=== PATIENT | male | born 1995 | race Caucasian/White ===

== ENCOUNTER → 2025-01-21 07:20 | Outpatient (CLI) | payer OTHER, SELFPAY ==
--- NOTE | 2025-01-21 07:23 | DI.US.S_ITS ---
PROCEDURE: US SCROTUM INDICATIONS: r/o epididymitis TECHNIQUE: Real-time scanning was performed of the scrotum and testicles, with image documentation. Color and pulse Doppler interrogation was performed of both testicles. COMPARISON: None. FINDINGS: Right: Testicle is normal in size at 4.3 x 2.2 x 3.0 cm, and homogenous in echotexture. Epididymis is normal in overall size with mildly heterogeneous epididymal echotexture. No hydrocele or varicoceles. Overlying scrotal skin is normal in thickness. Left: Testicle is normal in size at 4.2 x 2.1 x 2.7 cm, and homogeneous in echotexture. Epididymis is normal in overall size with mildly heterogeneous epididymal echotexture.. Small left hydrocele. No varicoceles. Overlying scrotal skin is normal in thickness. Doppler: Color and pulse Doppler demonstrate normal and symmetric arterial flow in both testicles. IMPRESSION: 1. Small left hydrocele. No varicoceles. 2. Mild heterogeneous echotexture in bilateral epididymis. No abnormally increased vascularity to suggest epididymitis. No discrete epididymal mass. 3. Normal appearing bilateral testes. Dictated by: Connor Card M.D. on 01/22/2025 at 23:04 Approved by: Connor Card M.D. on 01/22/2025 at 23:05
== END ==
PROVIDERS: Referring Provider Family Medicine; Visit Provider Family Medicine
DX: N50.811 Right testicular pain (principal); N43.3 Hydrocele, unspecified
CPT/HCPCS: 76870; 93975